=== PATIENT | female | born 1975 | race Caucasian/White ===

== ENCOUNTER 2017-09-28 05:18 | Emergency (ER) | payer BC ==
--- NOTE | 2017-09-28 06:15 | ER Document Report ---
ED Head/Face/Scalp Injury - General Mode of Arrival: Ambulatory Information source: Patient TRAVEL OUTSIDE OF THE [place] IN LAST 30 DAYS: No <FRANK LONG - Last Filed: 09/28/17 08:02> <HELDER PAUL - Last Filed: 09/28/17 13:31> <CLYDE HASKINS - Last Filed: 09/29/17 06:23> - General Chief Complaint: Head Injury without LOC Stated Complaint: HEAD INJURY Notes: Patient is a 41-year-old female who presents to the emergency department today with complaints of a mechanical fall that occurred prior to arrival. Patient states she had drank "quite a bit of tequila" prior to this. Patient states she turned and lost her balance falling down on the concrete. Patient states her head is what made contact with the ground first. Patient has a laceration through her left eyebrow. Patient states her tetanus status is unknown. Patient had a mild nosebleed as well, bleeding is controlled. Patient denies any usage of blood thinners, jaw pain, neck pain, vision changes, loss of consciousness, pain with movement of the eye, numbness, or tingling. (FRANK LONG) - Related Data Allergies/Adverse Reactions: No Known Allergies Allergy (Unverified 09/28/17 05:23) Past Medical History - General Information source: Patient - Social History Smoking Status: Never Smoker Cigarette use (# per day): No Frequency of alcohol use: None Drug Abuse: None Lives with: Family Family History: Reviewed & Not Pertinent - Medical History Medical History: Negative Surgical Hx: Negative <FRANK LONG - Last Filed: 09/28/17 08:02> Review of Systems - Review of Systems Constitutional: No symptoms reported EENT: See HPI, Other - lac above left eye. denies: Blurred vision, Double vision Cardiovascular: No symptoms reported Respiratory: No symptoms reported Gastrointestinal: No symptoms reported Genitourinary: No symptoms reported Female Genitourinary: No symptoms reported Musculoskeletal: denies: Neck pain Skin: No symptoms reported Hematologic/Lymphatic: No symptoms reported Neurological/Psychological: denies: Lost consciousness, Numbness, Tingling -: Yes All other systems reviewed and negative <FRANK LONG - Last Filed: 09/28/17 08:02> Physical Exam <FRANK LONG - Last Filed: 09/28/17 08:02> <HUMBERTOHELDER A - Last Filed: 09/28/17 13:31> <CLYDE HASKINS - Last Filed: 09/29/17 06:23> - Vital signs Vitals: Temp Pulse Resp BP Pulse Ox 97.6 F 64 18 145/87 H 99 09/28/17 05:22 09/28/17 05:22 09/28/17 05:22 09/28/17 05:22 09/28/17 05:22 - Notes Notes: Physical Exam: General: Alert, appears well. HEENT: Normocephalic. Atraumatic. PERRL. Extraocular movements intact. Oropharynx clear. No nasal septal hematoma. Neck: Supple. Non-tender. Respiratory: No respiratory distress. Trace wheezing bilaterally consistent with smoking history. Cardiovascular: Regular rate and rhythm. Abdominal: Normal Inspection. Non-tender. No distension. Normal Bowel Sounds. Back: Non-tender. No deformity or step off. Extremities: Moves all four extremities. Upper extremities: Normal inspection. Normal ROM. Lower extremities: Normal inspection. No edema. Normal ROM. Neurological: Normal cognition. AAOx4. Normal speech. Psychological: Normal affect. Normal Mood. Skin: Warm. Dry. Normal color. (FRANK LONG) Course <ETHANFRANK - Last Filed: 09/28/17 08:02> <HUMBERTO,HELDER Rhonda - Last Filed: 09/28/17 13:31> <CLYDE HASKINS - Last Filed: 09/29/17 06:23> - Re-evaluation Re-evalutation: 09/28/17 07:36 Patient unsure of last tetanus shot was provided in the emergency department. Patient well-appearing no neurologic deficits no step-offs on exam. She had no loss of consciousness. Do not feel head CT or imaging is warranted at this time based on exam and history. Mid-level repair laceration, no complications. Return precautions provided regarding infection. Wound did show evidence of foreign bodies prior to suturing. (CLYDE HASKINS) - Vital Signs Vital signs: Temp Pulse Resp BP Pulse Ox 97.8 F 72 18 131/82 H 97 09/28/17 08:03 09/28/17 08:03 09/28/17 08:03 09/28/17 08:03 09/28/17 08:03 Procedures <ETHANFRANK GARZA - Last Filed: 09/28/17 08:02> - Laceration/Wound Repair Head Time completed: 07:46 Wound length (cm): 2 - cm Wound's Depth, Shape: Superficial Laceration pre-procedure: Sterile drapes applied, Shur-Clens applied Anesthetic type: 1% Lidocaine Volume Anesthetic (mLs): 2,000 - mL of high pressure irrigation with NS. no fb seen on exploration of the wound Wound explored: Clean Wound Repaired With: Sutures Suture Size/Type: 6:0, Nylon Number of Sutures: 6 Layer Closure?: No - simple suture Post-procedure NV exam normal: Yes Complications: No <HELDER PAUL - Last Filed: 09/28/17 13:31> <CLYDE HASKINS - Last Filed: 09/29/17 06:23> - Laceration/Wound Repair Head Notes: 09/28/17 07:47 verbal consent given by patient and her children to repair wound. pt tolerated procedure without incident. advised that sutures need to be removed in 3-5 days. all questions and concerns answered by this provider. (HELDER PAUL) Discharge <FRANK LONG - Last Filed: 09/28/17 08:02> <HELDER PAUL - Last Filed: 09/28/17 13:31> <CLYDE HASKINS - Last Filed: 09/29/17 06:23> - Discharge Clinical Impression: Forehead laceration Qualifiers: Encounter type: initial encounter Qualified Code(s): S01.81XA - Laceration without foreign body of other part of head, initial encounter Condition: Good Disposition: HOME, SELF-CARE Instructions: Antibiotic Ointment Protection ([facility]), Head Injury Precautions ( [facility]), Laceration Care ([facility]), Tetanus Immunization Given ([facility]) Additional Instructions: Please take 600 800 mg ibuprofen every 6-8 hours as needed for pain Please have sutures removed in 7 days in the emergency department or your family doctor's office Scribe Attestation: 09/29/17 06:23 I personally performed the services described documentation, reviewed and edited the documentation which was dictated to describe my presence, and it accurately records my words and actions. (CLYDE HASKINS) Scribe Documentation - Scribe Written by Scribe:: Kasia Pleitez, 09/28/2017 0810 acting as scribe for :: Aiden <FRANK LONG - Last Filed: 09/28/17 08:02>
[2017-09-28] MEDS ORDERED: LIDOCAINE 1%/EPINEPHRINE INJ 20 ML VIAL INJ ONE (06:16)
[2017-09-28] MEDS ORDERED: DIPH/PERTUSS(ACELL)/TETANUS VAC/PF 0.5 ML SYR (>=10YO) IM ONE (07:38)
[2017-09-28 08:08] VITALS: BP 131/82
== END 2017-09-28 08:08 | disposition home or self-care (01) ==
LOC: ER 05:18
PROC: 0HQ1XZZ Repair Face Skin, External Approach (ICD-10-PCS; principal; 2017-09-28)
DX: S09.90XA Unspecified injury of head, initial encounter (principal); S01.112A Laceration without foreign body of left eyelid and periocular area, initial encounter; R04.0 Epistaxis; W18.30XA Fall on same level, unspecified, initial encounter
CPT/HCPCS: 99283; 90471; 90715; 12011; J3490